=== PATIENT | male | born 1935 | race Hispanic/Latino ===

== ENCOUNTER → 2017-04-16 | Outpatient (CLI) | payer MEDICARE ==
[~2017-04-16] MED LIST: ASPI-1012 PO; FINA5TAB41 PO; HYDR-2132 PO; LISI-613 PO; LOSA50TA37 PO; ROSU5TAB PO; TAMS0.4C32 PO
== END | disposition home or self-care (01) ==
LOC: OIH 10:44
PROVIDERS: ATTEND Family Medicine
DX: M19.021 Primary osteoarthritis, right elbow (principal); M85.841 Other specified disorders of bone density and structure, right hand
CPT/HCPCS: 73080

== ENCOUNTER → 2018-01-26 | Outpatient (CLI) | payer MEDICARE ==
[~2018-01-26] MED LIST changes: +LOSA50TA25 PO; -LOSA50TA37 PO
== END | disposition home or self-care (01) ==
LOC: OIH 14:42
PROVIDERS: ATTEND Family Medicine
DX: M85.812 Other specified disorders of bone density and structure, left shoulder (principal); M06.9 Rheumatoid arthritis, unspecified
CPT/HCPCS: 73030

== ENCOUNTER → 2019-06-11 | Outpatient (CLI) | payer OTHER, MEDICARE ==
[~2019-06-11] MED LIST changes: -LOSA50TA25 PO; +LOSA50TA64 PO
== END | disposition home or self-care (01) ==
LOC: OIH 15:58
PROVIDERS: ATTEND Family Medicine
DX: R10.32 Left lower quadrant pain (principal); I70.8 Atherosclerosis of other arteries; Z90.49 Acquired absence of other specified parts of digestive tract
CPT/HCPCS: 74018

== ENCOUNTER → 2020-05-09 | Outpatient (CLI) | payer OTHER, MEDICARE ==
[~2020-05-09] MED LIST changes: -LISI-613 PO; +LISI20TA24 PO
== END | disposition home or self-care (01) ==
LOC: RAH 10:00
PROVIDERS: ATTEND Family Medicine
DX: N50.819 Testicular pain, unspecified (principal)
CPT/HCPCS: 76870